=== PATIENT | female | born 1955 | race Caucasian/White ===

== ENCOUNTER 2016-04-06 10:58 | Inpatient (IN) | payer BC ==
[2016-04-06 11:45] LABS: Hemoglobin 12.6 gm/dL (12.5-16.0); Mean Cell Volume 85.9 fl (78-100); Mean Corpuscular Hemoglobin 30.1 pg (27-31); Mean Platelet Volume 8.1 fl (6.0-9.5); Neutrophil # 9.2 K/mm3 (1.3-6.0); Neutrophil % 77.8 % (42-75.0); Platelet Count 364 K/mm3 (150-450); Red Blood Count 4.19 M/mm3 (4.2-5.4); Red Cell Distribution Width 11.5 % (11.5-14.0); White Blood Count 11.8 K/mm3 (4.0-10.5)
[2016-04-06 11:58] LABS: Urine Appearance Slightly Cloudy; Urine Bilirubin Negative (NEGATIVE); Urine Blood 150 /ul (NEGATIVE); Urine Color Yellow; Urine Ketone 5 mg/dL (NEGATIVE); Urine Protein 15 mg/dL (NEGATIVE); Urine Urobilinogen Normal (NORMAL); Urine pH 5.5 pH (5.0-7.0)
[2016-04-06 11:59] LABS: Urine Bacteria 2+; Urine Nitrite Negative (NEGATIVE); Urine RBC 0-5 /hpf (0-5)
[2016-04-06 12:00] LABS: Urine WBC 25-50 /hpf (0-5)
[2016-04-06 12:04] LABS: Albumin * 3.8 gm/dl (3.4-5.0); Anion Gap 14.6 mmol/L (6.8-13.8); BUN/Creatinine Ratio 15.6 (9.0-21.6); Bilirubin, Total 0.5 mg/dL (0.0-1.1); Ca. Corrected For Albumin 9.7 mg/dL (8.4-10.2); Calcium * 9.9 mg/dL (7.9-10.9); Carbon Dioxide 27.7 mmol/L (24-32.6); Potassium 4.3 mmol/L (3.4-4.6); Total Protein 8.4 gm/dL (6.2-8.2)
[2016-04-06] MEDS ORDERED: NORMAL SALINE 1,000 ML IV ONE (12:57)
[2016-04-06] MEDS ORDERED: MORPHINE SULFATE 2 MG/ML DISP.SYRIN IV ONE (14:29)
[2016-04-06] MEDS ORDERED: MORPHINE SULFATE 2 MG/ML DISP.SYRIN ONE (14:36)
--- NOTE | 2016-04-06 15:39 | ERNOTE ---
Headache ER HPI - Narrative Date of Service: 04/06/16 - General Presenting Symptoms: headache, fever Time Seen by Provider: 04/06/16 12:24 Source: patient Exam Limitations: no limitations - Immun/Allergies/Home Medications Allergies/Adverse Reactions: Allergies azithromycin [From Zithromax Z-Abhilash] Allergy (Mild, Verified 04/06/16 11:25) Hives amoxicillin Allergy (Verified 04/06/16 11:26) Hives Home Medications: HOME MEDICATIONS Acetaminophen [Tylenol] 1,000 mg PO Q6H PRN 07/24/14 [Last Taken Unknown] Blood Sugar Diagnostic, Drum [Accu-Chek Compact] 1 each MC BID 07/24/14 [Last Taken Unknown] Calcium Carbonate [Caltrate 600] 600 mg PO BID 07/24/14 [Last Taken Unknown] Estrogens, Conjugated [Premarin Cream] 1 appl VG 2XW 07/24/14 [Last Taken Unknown] Ibuprofen [Motrin] 400 mg PO Q6H PRN 07/24/14 [Last Taken Unknown] metFORMIN HCL [Glucophage] 500 mg PO BIDWM 07/24/14 [Last Taken Unknown] - Pain Pain Score: 8 - History of Present Illness Narrative: Patient is a 60 year old female with history of well controlled DM who presents to the ED today with her complaining of headache, neck pain and low grade temperature since Thursday. Patient describes the pain to the back of her head as constant and stabbing. States she was seen 2 weeks ago and diagnosed with strep throat. Was started on Amoxil yet stopped after 5 days due to rash on extremities. She states she feels extremely lethargic and weak and felt "absolutely fatigued after work Thursday night". Date (Duration): 04/01/16 Timing of Headache: gradual, cannot pinpoint onset, still present, constant, worse Context Headache: Absent: CO exposure, tick bite, insect bite, sick contact, recent head injury < 24 hrs ago, recent head injury > 24 hrs, recent travel- outside [place] Quality: Present: stabbing Severity Maximum: Present: severe Severity-Currently: Present: moderate Headache frequency: Present: no recent headache Modifying Factors - (Improves): Reports: rest Modifying Factors - (Worsens): Reports: movement Associated Symptoms: Reports: fever/chills, nausea, vomiting, fatigue, weakness , neck pain/stiffness. Denies: sweating, nasal congestion, nasal drainage, facial pain, numbness/tingling, vision changes, confusion, light-headedness, dizziness, loss of consciousness, seizures, speech problems Exacerbated by:: Reports: movement Review of Systems - Review of Systems Constitutional: Present: See HPI, fever, chills, weakness, fatigue, weight loss. Absent: recent illness, diaphoresis EYE: Present: no symptoms reported. Absent: eye pain, eye discharge, blurred vision, double vision, vision changes ENT: Absent: ear pain, ear discharge, nose pain, nose congestion, nasal drainage , sore throat, throat swelling Respiratory: Present: cough. Absent: shortness of breath, orthopnea, wheezing Cardiology: Absent: chest pain, palpitations Gastrointestinal/Abdominal: Present: nausea, vomiting, eating less, drinking less. Absent: abdominal pain Genitourinary: Present: no symptoms reported Musculoskeletal: Present: neck pain. Absent: back pain, muscle pain, muscle stiffness, joint swelling Skin: Absent: rash, lesions Neurological: Present: headache. Absent: dizziness/light-headedness, weakness, numbness - Patient's Past Medical History Patient History - Medical: Diabetes Type 2, Other Patient History - Cancer: Melanoma, Surgical Treatment Patient History - Surgical Procedures: Other - Social History Living Situations: spouse Alcohol Use: occasionally Drug Use: none Physical Exam - Physical Exam General Appearance: Present: wd/wn, alert, no apparent distress Eye Exam: PERRL: bilateral Ears, Nose, Throat: Present: hearing grossly normal, normal pharynx, dry mucous membranes Neck: Present: normal inspection, supple, full range of motion, tender posterior midline. Absent: nontender, lymphadenopathy (R), lymphadenopathy (L) Respiratory: Present: no respiratory distress, normal breath sounds, no accessory muscle use, chest nontender, lungs clear. Absent: chest tenderness, respiratory distress Cardiovascular/Chest: Present: regular rate, rhythm, no murmur, normal peripheral pulses Peripheral Pulses: N=norm/S=strong/W=weak/B=bound/A=absent: Radial (R): Strong, Radial (L): Strong Gastrointestinal/Abdominal: Present: normal bowel sounds, nontender, nondistended, soft, no organomegaly Back Exam: Present: normal inspection, normal range of motion, no CVA tenderness , no vertebral tenderness Extremity Exam: Present: normal inspection, non-tender, no edema, normal range of motion Neurological Exam: Present: alert, oriented, normal mood/affect, no motor/ sensory deficits Skin Exam: Present: normal color, warm/dry. Absent: diaphoresis, cyanosis, skin rash Lymphatic Exam: Present: no adenopathy. Absent: axilla node (R), axilla node (L ) ED Progress - Results and Orders Patient's Lab Results:: I have reviewed the patient's lab results. - Vital Signs Patient's Vital Signs:: I have reviewed the patient's vital signs. Vital Signs: Vital Signs 04/06/16 04/06/16 04/06/16 11:22 12:55 14:00 Temperature 37.2 C Pulse Rate 90 88 90 Respiratory 14 14 14 Rate Blood Pressure 139/83 126/78 121/72 O2 Sat by Pulse 100 100 100 Oximetry 04/06/16 15:03 Temperature Pulse Rate 88 Respiratory 16 Rate Blood Pressure 122/74 O2 Sat by Pulse 99 Oximetry - X-Ray X-Ray #1 X-Ray: chest X-ray Comments: Findings: The lungs demonstrate no focal consolidation or acute abnormality. There is no pleural effusion or pneumothorax. Cardiac silhouette and pulmonary vasculature are normal. The osseous structures are within normal limits for age. IMPRESSION: No acute cardiopulmonary process detected - CT/Ultrasound CT/Ultrasound Narrative: Technique: CT Head W/O Contrast * Findings: There is no acute intracranial hemorrhage, midline shift or mass effect detected. No hydrocephalus. Cisterns are unremarkable. Calvarium is intact. Paranasal sinuses are clear. Mastoid air cells are well pneumatized. Impression: No acute intracranial process detected. - Progress/Reassessment Chief Complaint: Headache Progress Note-Subjective: 04/06/16 16:38 Dr Frances in room to perform LP. 04/06/16 18:30 Discussed tentative plan of care including desire to admit patient for IVF and antibiotics. Both and patient agreed to plan. Patient states she feels better after the fluid 04/06/16 20:00 Admission accepted by Brigitte. Patient up ambulating well without assistance. States she feels better, less pain. Departure Clinical Impression: Viral encephalitis - Departure Disposition: [facility] Condition: Serious
[2016-04-06] MEDS ORDERED: NORMAL SALINE 1,000 ML IV PRN (16:17)
[2016-04-06] MEDS ORDERED: ONDANSETRON HCL/PF 2 MG/ML VIAL IV ONE ×2 (16:26→16:59)
[2016-04-06] MEDS ORDERED: ONDANSETRON HCL/PF 2 MG/ML VIAL ONE ×2 (16:26→17:05)
[2016-04-06] MEDS ORDERED: KETOROLAC TROMETHAMINE 30 MG/ML VIAL IV ONE (16:59)
[2016-04-06] MEDS ORDERED: KETOROLAC TROMETHAMINE 30 MG/ML VIAL ONE (17:05)
[2016-04-06] MEDS: NORMAL SALINE 1,000 ML IV PRN (18:07)
[2016-04-06] MEDS ORDERED: VANCOMYCIN HCL 1 GM in DEXTROSE 5 % IN WATER 250 ML IV ONE ×2 (18:48)
[2016-04-06] MEDS ORDERED: LEVOFLOXACIN/D5W 750 MG/150 ML BAG IV SCH ×2 (19:00→20:15)
[2016-04-06 19:07] LABS: CSF Appearance Clear (CLEAR); CSF Color Colorless (COLORLESS)
[2016-04-06 19:08] LABS: CSF RBC 10 /uL (0-10); CSF WBC 3150 /uL (0-10)
[2016-04-06] MEDS ORDERED: ACYCLOVIR SODIUM 500 MG in NORMAL SALINE 100 ML IV SCH (20:00)
[2016-04-06 20:06] LABS: CSF Lymphocytes 89 % (0-100)
--- NOTE | 2016-04-06 21:54 | HP ---
Chief Complaint - Chief Complaint Date of Service: 04/06/16 Time of Service: 21:38 Chief Complaint: "Fatigue, Vomiting, Rashes, Headaches". Source of HPI- Pt; reliable, ER provider report, Pt's EMR. History of Present Illness: Mrs. Caballero is a 60-yr-old [place] pt of Dr. Swetha Lim. She has no other pertinent medical history except for DM Type II. Pt states that she saw her PCP on 03/27/16 for symptoms of: sore throat, non productive cough & loss of voice. She was found to have streptococcal Pharyngitis and was started on Amoxicillin 500 mg t.i.d x 10 days. She took the medication for 5 days and stopped taking on 04/01/16, when she noticed rashes on her thighs. She described the rashes as small, red & raised. She states that the rashes were itchy as well, but they have slowly disappeared. On the same day (Thursday), she noticed that she was very tired and thought it was just related to her illness. On Thursday , she felt extremely fatigued and she slept nearly the whole day. On , she developed a headache and still continued to feel fatigued. She says that by Thursday, she still felt she had no energy and begun having stiff neck, and still had headaches. On Thursday, the neck pain was severe. She finally chose to come to the [facility] ER on Thursday as she did not feel any better. She denies nausea, but says she has vomited a total of three times since Thursday. She also denies diarrhea. She has had no foreign travels and does not engage in outdoor recreational activities. During evaluation at the ER, she reported feeling very tired, and weak. The head CT and CXR obtained did not have any acute findings. However Lumbar Puncture CSF results showed findings consistent with Viral Meningitis. She will require inpatient stay in the event that the viral meningitis turns out to be a caused by a virus that can lead to a more serious diagnosis of viral encephalitis. - Patient's Past Medical History Patient History - Medical: Diabetes Type 2, Other Patient History - Cancer: Melanoma, Surgical Treatment Patient History - Surgical Procedures: Other - Family History Father Family History - Cardiac/Respiratory: CHF, Hypertension Mother Family History - Medical: Dementia Family History - Cardiac/Respiratory: Hypertension, Hyperlipidemia - Social History Living Situations: spouse Alcohol Use: occasionally Drug Use: none - Immunizations Immunizations Up to Date: Yes Hx Pneumococcal Vaccination: Yes History of Influenza Vaccine: Yes Review Of Systems (GEN) - Review of Systems Generalized/Overall Review: Present: Weakness, Chills, Fever, Malaise, Fatigue. Absent: Diaphoresis EENTM: Absent: Eye Pain, Blurred Vision, Double Vision, Ear Discharge, Nose Congestion, Throat Pain, Throat Swelling Respiratory: Absent: Cough, Shortness of Breath Cardiac: Absent: Chest Pain, Edema, Palpitations Abdominal: Present: Vomiting. Absent: Nausea, Abdominal Pain, Constipation, Diarrhea, Bright blood from rectum Genitourinary: Absent: Burning, Itching, Urgency, Frequency, Hematuria Musculoskeletal: Present: Neck Pain, Other - Body aches all over, Neurological: Present: Headache, Weakness. Absent: Anxiety, Depressed, Emotional Problems, Parasthesia, Tingling Skin: Present: Dryness, Rash Endocrine: Present: Intolerance to Cold. Absent: Increased Hunger, Increased Thirst Misc: All systems neg except as marked Allergies/Adverse Reactions: Allergies Allergy/AdvReac Type Severity Reaction Status Date / Time amoxicillin Allergy Intermediate Hives Verified 04/06/16 23:28 azithromycin Allergy Mild Hives Verified 04/06/16 23:28 [From Zithromax Z-Abhilash] Home Medications: HOME MEDICATIONS Acetaminophen [Tylenol] 1,000 mg PO Q6H PRN 07/24/14 [Last Taken Unknown] Blood Sugar Diagnostic, Drum [Accu-Chek Compact] 1 each MC 2XW 07/24/14 [Last Taken 03/26/16] Calcium Carbonate [Caltrate 600] 600 mg PO BID PRN 07/24/14 [Last Taken Unknown] Estrogens, Conjugated [Premarin Cream] 1 appl VG PRN 07/24/14 [Last Taken Unknown] Ibuprofen [Motrin] 200 mg PO Q6H PRN 07/24/14 [Last Taken Unknown] metFORMIN HCL [Glucophage] 500 mg PO QAM 07/24/14 [Last Taken 04/06/16 07:30] metFORMIN HCL [Glucophage] 250 mg PO QPM 04/06/16 [Last Taken 04/05/16 18:00] Exam - Exam Vital Signs: Vital Signs - Last Taken Temp 37.2 C 04/06/16 11:22 Pulse 88 04/06/16 20:00 Resp 14 04/06/16 20:00 BP 126/72 04/06/16 20:00 Pulse Ox 98 04/06/16 20:00 Constitutional: Present: Alert, Oriented x3, No distress, Other - very ill appearing ENT Exam: Present: normal ENT inspection, hearing grossly normal, dry mucous membranes. Absent: nasal congestion, nasal drainage Eye Exam: bilateral eye: normal inspection, PERRL Neck: Present: full range of motion, supple, normal inspection Back Exam: Present: normal inspection, no CVA tenderness Respiratory: Present: lungs clear, no accessory muscle use, No wheezing Cardiovascular/Chest: Present: normal peripheral pulses, regular rate, rhythm, no chest tenderness, no murmur Abdomen: Present: Normal bowel sounds, soft, nontender /Rectal: Present: Exam deferred Extremity: Present: non-tender, normal inspection, no pedal edema, normal capillary refill Skin Exam: Present: warm/dry, no cyanosis Lymphatic: Present: no adenopathy Neurologic: Present: no motor/sensory deficits, alert, depressed affect Appearance: Present: appropriate appearance, appropriate insight Eye contact: Present: cooperative, good eye contact, normal speech Thoughts: Present: normal thought pattern, no apparent hallucination Diagnostic Studies: Laboratory Results WBC 11.8 K/mm3 (4.0-10.5) H 04/06/16 11:40 RBC 4.19 M/mm3 (4.2-5.4) L 04/06/16 11:40 Hgb 12.6 gm/dL (12.5-16.0) 04/06/16 11:40 Hct 36.0 % (37.0-47.0) L 04/06/16 11:40 MCV 85.9 fl (78-100) 04/06/16 11:40 MCH 30.1 pg (27-31) 04/06/16 11:40 MCHC 35.0 g/dl (32-36) 04/06/16 11:40 RDW 11.5 % (11.5-14.0) 04/06/16 11:40 Plt Count 364 K/mm3 (150-450) 04/06/16 11:40 MPV 8.1 fl (6.0-9.5) 04/06/16 11:40 Immature Gran % (Auto) 0.60 % (0.001-0.429) H 04/06/16 11:40 Immature Gran # (Auto) 0.07 K/mm3 (0.000-0.0310) H 04/06/16 11:40 Neutrophils % 77.8 % (42-75.0) H 04/06/16 11:40 Lymphocytes % 14.6 % (20-51) L 04/06/16 11:40 Monocytes % 6.5 % (0.0-9) 04/06/16 11:40 Eosinophils % 0.2 % (0.0-3.0) 04/06/16 11:40 Basophils % 0.3 % (0.0-1.0) 04/06/16 11:40 Nucleated RBC % 0.0 k/mm3 (0-1) 04/06/16 11:40 Neutrophils # 9.2 K/mm3 (1.3-6.0) H 04/06/16 11:40 Lymphocytes # 1.7 k/mm3 (1.5-3.5) 04/06/16 11:40 Monocytes # 0.8 k/mm3 (0.0-1.0) 04/06/16 11:40 Eosinophils # 0.0 k/mm3 (0.0-0.7) 04/06/16 11:40 Absolute Basophils 0.0 k/mm3 (0.0-0.1) 04/06/16 11:40 Sodium 135 mmol/L (132-142) 04/06/16 11:40 Plasma Sodium 136 mmol/L (130-142) 04/06/16 11:40 Potassium 4.3 mmol/L (3.4-4.6) 04/06/16 11:40 Chloride 97 mmol/L (97-106) 04/06/16 11:40 Carbon Dioxide 27.7 mmol/L (24-32.6) 04/06/16 11:40 Anion Gap 14.6 mmol/L (6.8-13.8) H 04/06/16 11:40 BUN 14 mg/dL (3-23) 04/06/16 11:40 Creatinine 0.90 mg/dL (0.4-1.4) 04/06/16 11:40 Est GFR (Non-Af Amer) 68 mL/min (60-130) 04/06/16 11:40 BUN/Creatinine Ratio 15.6 (9.0-21.6) 04/06/16 11:40 Random Glucose 193 mg/dL (70-110) H 04/06/16 11:40 Calcium 9.9 mg/dL (7.9-10.9) 04/06/16 11:40 Calcium Adj for Albumin 9.7 mg/dL (8.4-10.2) 04/06/16 11:40 Total Bilirubin 0.5 mg/dL (0.0-1.1) 04/06/16 11:40 AST 10 U/L (0-48) 04/06/16 11:40 ALT 16 U/L (19-67) L 04/06/16 11:40 Alkaline Phosphatase 66 U/L (50-170) 04/06/16 11:40 C-Reactive Prot, Quant 4.7 mg/dL (0.0-0.9) H 04/06/16 11:40 Total Protein 8.4 gm/dL (6.2-8.2) H 04/06/16 11:40 Albumin 3.8 gm/dl (3.4-5.0) 04/06/16 11:40 Procalcitonin Less than 0.05 ng/mL (0.05-0.50) L 04/06/16 11:40 Urine Color Yellow 04/06/16 11:30 Urine Appearance Slightly cloudy 04/06/16 11:30 Urine pH 5.5 pH (5.0-7.0) 04/06/16 11:30 Ur Specific [place] 1.030 SP.GR. (1.005-1.010) 04/06/16 11:30 Urine Protein 15 mg/dL (NEGATIVE) H 04/06/16 11:30 Urine Glucose (UA) Negative mg/dL (NEGATIVE) 04/06/16 11:30 Urine Ketones 5 mg/dL (NEGATIVE) 04/06/16 11:30 Urine Blood 150 /ul (NEGATIVE) H 04/06/16 11:30 Urine Nitrate Negative (NEGATIVE) 04/06/16 11:30 Urine Bilirubin Negative mg/dl (NEGATIVE) 04/06/16 11:30 Prot Sulfosalicylic Acd 1+ mg/dL (0) 04/06/16 11:30 Urine Urobilinogen Normal EU/dl (NORMAL) 04/06/16 11:30 Ur Leukocyte Esterase 75 /ul (NEGATIVE) H 04/06/16 11:30 Urine RBC 0-5 /hpf (0-5) 04/06/16 11:30 Urine WBC 25-50 /hpf (0-5) H 04/06/16 11:30 Ur Epithelial Cells >25 /hpf (0-5) H 04/06/16 11:30 Urine Bacteria 2+ (NONE) H 04/06/16 11:30 Urine Culture Comments Culture to follow 04/06/16 11:30 CSF Appearance Clear (CLEAR) 04/06/16 16:58 CSF Color Colorless (COLORLESS) 04/06/16 16:58 CSF WBC 3150 /uL (0-10) H* 04/06/16 16:58 CSF RBC 10 /uL (0-10) 04/06/16 16:58 CSF Neutrophils 5 % (0-0) H 04/06/16 16:58 CSF Lymphocytes 89 % (0-100) 04/06/16 16:58 CSF Monocytes 6 % (0-10) 04/06/16 16:58 CSF Glucose 75 mg/dL (40-75) 04/06/16 16:58 CSF Total Protein 96.4 mg/dL (15.0-45.0) H 04/06/16 16:58 Influenza Type A Ag Negative (NEGATIVE) 04/06/16 13:40 Influenza Type B Ag Negative (NEGATIVE) 04/06/16 13:40 Group A Strep Rapid Negative (NEGATIVE) 04/06/16 11:40 Assessment/Plan - Assessment/Plan (1) Viral meningitis Assessment: Condition likely Meningitis VS Encephalitis. Pt noted to have typical features of viral Meningitis: headaches, neck stiffness, malaise, myalgias. She never checked her temperature to detect how high her temperature was, but reports having chills and shivering at night which are signs of fevers. Viral Meningitis also very likely given that it was preceded by viral respiratory symptoms involving coughing and sore throat. She tested positive to rapid strep test. I cannot find the culture results to determine if the strep test was viral or bacterial. A wide variety of viruses can infect [employer] and cause meningitis or encephalitis. Therefore will check HSV 1& 2, PCR, Varicella Zoster Virus. She has no neurological manifestations of encephalitis which could include AMS, motor or sensory deficits, hemiparesis or paresthesias. Viral Meningitis is generally self limiting and requires supportive cares. Treatment with empiric antibiotics may be necessary until diagnosis is confirmed. She did receive treatment with Vancomycin until L.P was done to confirm the viral meningitis. Will continue supportive cares with: IVF/Fluid intake, antipyretics, antiemetic and analgesics. Will continue treatment with IV Acyclovir until we get HSV, PCR & VZV results. Otherwise, antiviral agents are not effective treatments of viral meningitis. Acyclovir may be considered for HSV meningitis. Corticosteroids use is not recommended and limited to cerebral edema or intracranial HTN cases. Problem: Acute (2) UTI (urinary tract infection) Assessment: UA shows presence of UTI, will cover with Rocephin for now and switch to appropriate antibiotics once culture results. Problem: Acute (3) Diabetes mellitus Assessment: Last hemoglobin A1c 5.8. Will hold metformin for now incase there was need to any diagnostic tests involving contrast use. Accuchecks ACHS and low dose SSI Problem: Chronic
[2016-04-06] MEDS: ACYCLOVIR SODIUM 500 MG in NORMAL SALINE 100 ML IV SCH (21:59)
[2016-04-06] MEDS: INSULIN LISPRO 100 UNITS/ML VIAL SC SCH (23:36)
[2016-04-07] MEDS ORDERED: ESTROGENS CONJUGATED VG SCH (00:15)
[2016-04-07] MEDS ORDERED: ONDANSETRON HCL/PF 2 MG/ML VIAL IV PRN (01:00)
[2016-04-07] MEDS ORDERED: HYDROmorphone HCL 1 MG/ML DISP.SYRIN IV PRN (01:01)
[2016-04-07] MEDS: NORMAL SALINE 1,000 ML IV PRN ×2 (03:24→15:06)
[2016-04-07] MEDS: ACYCLOVIR SODIUM 500 MG in NORMAL SALINE 100 ML IV SCH ×3 (05:06→21:00)
[2016-04-07] MEDS: ACETAMINOPHEN 500 MG TABLET PO PRN ×2 (05:16→11:22)
[2016-04-07 05:33] LABS: Hematocrit 28.5 % (37.0-47.0); Hemoglobin 9.7 gm/dL (12.5-16.0); Mean Cell Volume 88.2 fl (78-100); Mean Platelet Volume 8.4 fl (6.0-9.5); Neutrophil # 3.6 K/mm3 (1.3-6.0); Neutrophil % 53.4 % (42-75.0); Platelet Count 297 K/mm3 (150-450); Red Blood Count 3.23 M/mm3 (4.2-5.4); Red Cell Distribution Width 11.6 % (11.5-14.0); White Blood Count 6.8 K/mm3 (4.0-10.5)
[2016-04-07 05:50] LABS: Anion Gap 12.8 mmol/L (6.8-13.8); BUN/Creatinine Ratio 14.9 (9.0-21.6); Calcium * 8.6 mg/dL (7.9-10.9); Estimated Creat Clear 77.6; Potassium 3.8 mmol/L (3.4-4.6)
[2016-04-07] MEDS: INSULIN LISPRO 100 UNITS/ML VIAL SC SCH ×4 (06:23→21:06)
[2016-04-07] MEDS: IBUPROFEN 200 MG TABLET PO PRN ×3 (07:43→21:00)
--- NOTE | 2016-04-07 07:50 | PN ---
Subjective - Date and Time Seen Date: 04/07/16 Time: 07:41 Subjective Narrative: Patient has no appetite . Complains of LOW. Objective - Review of Systems Generalized/Overall Review: Denies: Chills, Fever EENTM: Denies: Blurred Vision Respiratory: Denies: Cough, Shortness of Breath Cardiac: Denies: Chest Pain, Palpitations Abdominal: Reports: Nausea. Denies: Vomiting Genitourinary Symptoms: Denies: Urgency, Frequency Musculoskeletal Complaints: Reports: Neck Pain Neurological: Reports: Headache - Vitals Vitals: Last Vital Signs Temp 36.7 C 04/07/16 06:41 Pulse 79 04/07/16 06:41 Resp 11 L 04/07/16 06:41 BP 102/61 04/07/16 06:41 Pulse Ox 98 04/07/16 06:41 - Abnormal Lab Findings Abnormal Lab Findings: Abnormal Lab Results 04/07/16 Range/Units 04:45 RBC 3.23 L (4.2-5.4) M/mm3 Hgb 9.7 L (12.5-16.0) gm/dL Hct 28.5 L (37.0-47.0) % Monocytes % 9.1 H (0.0-9) % - Exam Constitutional: Present: Alert, Oriented x3, Cooperative ENT Exam: Present: hearing grossly normal Neck: Present: stiff neck Breasts: Present: Exam deferred Respiratory: Present: normal breath sounds, No rales, No wheezing Cardiovascular/Chest: Present: regular rate, rhythm, no JVD, no murmur Abdomen: Present: soft, nontender, nondistended Extremity: Present: no pedal edema, no calf tenderness Neurologic: Present: rod piler II-XII nml as tested, no motor/sensory deficits, oriented x 3 Assessment/Plan - Problems/Diagnosis (1) Headache Problem: Acute Qualifiers: Headache type: new daily persistent Qualified Code(s): G44.52 - New daily persistent headache (NDPH) Narrative: Meningitis- bacterial vs viral. Acylovir started. Vanco given at the ER. I told [employer] to give 2 grams of IV rocephin now. will get neurology consult. (2) Pyuria Problem: Acute Narrative: with bacteuria- will receive rocephin. await culture.
[2016-04-07] MEDS: CALCIUM CARBONATE/VITAMIN D3 1 TAB TABLET PO SCH (09:34)
[2016-04-08] MEDS: NORMAL SALINE 1,000 ML IV PRN (00:39)
[2016-04-08] MEDS: ACYCLOVIR SODIUM 500 MG in NORMAL SALINE 100 ML IV SCH ×4 (04:50→22:04)
[2016-04-08] MEDS: IBUPROFEN 200 MG TABLET PO PRN ×3 (04:56→20:44)
[2016-04-08] MEDS: INSULIN LISPRO 100 UNITS/ML VIAL SC SCH ×4 (07:22→20:40)
--- NOTE | 2016-04-08 07:56 | PN ---
Subjective - Date and Time Seen Date: 04/08/16 Time: 07:53 Subjective Narrative: Patient feeling better. LOW is better and neck not as stiff. Appetite is back. Objective - Review of Systems Generalized/Overall Review: Denies: Chills, Fever EENTM: Denies: Blurred Vision Respiratory: Reports: Cough. Denies: Shortness of Breath Cardiac: Denies: Chest Pain Abdominal: Denies: Nausea, Vomiting Genitourinary Symptoms: Denies: Urgency, Frequency Musculoskeletal Complaints: Reports: Joint Pain Neurological: Reports: Headache - Vitals Vitals: Last Vital Signs Temp 36.8 C 04/08/16 06:21 Pulse 75 04/08/16 06:21 Resp 16 04/08/16 06:21 BP 136/73 04/08/16 06:21 Pulse Ox 97 04/08/16 06:21 - Exam Constitutional: Present: Alert, Oriented x3, Cooperative ENT Exam: Present: hearing grossly normal Neck: Present: stiff neck - but improved Respiratory: Present: normal breath sounds, No rales, No wheezing Cardiovascular/Chest: Present: regular rate, rhythm, no JVD, no murmur Abdomen: Present: Normal bowel sounds, soft, nontender, nondistended Extremity: Present: no pedal edema, no calf tenderness Neurologic: Present: pharmaceutical botanist II-XII nml as tested, oriented x 3 Assessment/Plan - Problems/Diagnosis (1) Headache Problem: Acute Qualifiers: Headache type: new daily persistent Qualified Code(s): G44.52 - New daily persistent headache (NDPH) Narrative: improved significantly. (2) Pyuria Problem: Acute (3) Viral meningitis Problem: Acute Narrative: CSF C & S -NG. PCR for HSV pending. will try to get neurology input. (4) Diabetes mellitus type 2 in nonobese Problem: Acute Narrative: will restart metformin.
[2016-04-08] MEDS: ACETAMINOPHEN 500 MG TABLET PO PRN ×2 (09:31→17:17)
[2016-04-08] MEDS: CALCIUM CARBONATE/VITAMIN D3 1 TAB TABLET PO SCH (09:32)
[2016-04-08] MEDS: metFORMIN HCL 500 MG TABLET PO SCH ×2 (09:32→17:11)
[2016-04-08] MEDS ORDERED: VANCOMYCIN HCL 1 GM in DEXTROSE 5 % IN WATER 250 ML IV SCH ×2 (20:00)
[2016-04-08] MEDS ORDERED: ACYCLOVIR 800 MG TABLET PO ONE ×2 (20:47→22:00)
[2016-04-09 05:39] LABS: Hematocrit 30.5 % (37.0-47.0); Hemoglobin 10.6 gm/dL (12.5-16.0); Mean Cell Volume 86.2 fl (78-100); Mean Corpuscular Hemoglobin 29.9 pg (27-31); Mean Corpuscular Hgb Conc 34.8 g/dl (32-36); Mean Platelet Volume 8.5 fl (6.0-9.5); Neutrophil # 3.1 K/mm3 (1.3-6.0); Neutrophil % 49.6 % (42-75.0); Platelet Count 378 K/mm3 (150-450); Red Blood Count 3.54 M/mm3 (4.2-5.4); Red Cell Distribution Width 11.4 % (11.5-14.0); White Blood Count 6.3 K/mm3 (4.0-10.5)
[2016-04-09 06:00] LABS: Iron 54 mcg/dL (35-120); Transferrin Sat. (% Sat.) 21 % (15-55)
[2016-04-09 06:19] LABS: Anion Gap 12.1 mmol/L (6.8-13.8); BUN/Creatinine Ratio 16.3 (9.0-21.6); Calcium * 9.2 mg/dL (7.9-10.9); Carbon Dioxide 27.5 mmol/L (24-32.6); Estimated Creat Clear 71.8; Potassium 3.6 mmol/L (3.4-4.6); TSH * 3.627 uIU/mL (0.358-3.74)
[2016-04-09] MEDS: IBUPROFEN 200 MG TABLET PO PRN ×2 (06:57→13:11)
[2016-04-09] MEDS: INSULIN LISPRO 100 UNITS/ML VIAL SC SCH ×2 (07:59→12:29)
--- NOTE | 2016-04-09 08:27 | DS ---
(1) Headache Diagnosis(s): significantly improved Problem: Acute Qualifiers: Headache type: new daily persistent Qualified Code(s): G44.52 - New daily persistent headache (NDPH) (2) Pyuria Diagnosis(s): bacteuria- UCS - NG. Problem: Acute (3) Viral meningitis Diagnosis(s): CSF culture- NG. PCR pending. Discussed with Dr. Meraz- she can go home on Acyclovir x 1 week . Problem: Acute (4) Diabetes mellitus type 2 in nonobese Problem: Acute Description of Stay: Carmita aCballero is a 60-yr-old [facility] pt of Dr. Swetha Lim. Her medical history is siginifcant for DM Type II. Pt stated that she saw her PCP on 03/27/16 for symptoms of: sore throat, non productive cough & loss of voice. She was found to have streptococcal Pharyngitis and was started on Amoxicillin 500 mg t.i.d x 10 days. She took the medication for 5 days and stopped taking on Thursday, 04/01, when she noticed rashes on her thighs. She described the rashes as small, red & raised. She states that the rashes were itchy as well, but they have slowly disappeared. On the same day (Thursday), she noticed that she was very tired and thought it was just related to her illness. On Thursday, she felt extremely fatigued and she slept nearly the whole day. On , she developed a headache and still continued to feel fatigued. She says that by Thursday, she still felt she had no energy and begun having stiff neck, and still had headaches. On Thursday, the neck pain was severe. She finally chose to come to the [facility] ER on Thursday as she did not feel any better. She denied nausea, but says she has vomited a total of three times since Thursday. She also denies diarrhea. She has had no foreign travels and does not engage in outdoor recreational activities. During evaluation at the ER, she reported feeling very tired, and weak. The head CT and CXR obtained did not have any acute findings. However Lumbar Puncture CSF results showed findings consistent with Viral Meningitis. She was admitted for IV Acyclovir. she got a IV dose of Vanco and Rocephin. Her CSF culture showed NG. Dr. Meraz , neurology was consulted , and he says that she can go home on Acyclovir and follow up with him in 2 weeks time. She will stay off work until she follows up with her her PCP in 1 week. Procedures Performed: none List Procedures: Lumbar tap Discharge Disposition: Home self care Disposition: Home self-care Condition: Serious Discharge Diet: Consistent carbs Referrals: Swetha Lim MD [Primary Care Provider] - Problem Oriented Discharge Instructions to Patient/Family: Viral Encephalitis Additional Patient Instructions (free text): Follow up with PCP- Dr. Lim in 1 week on 04-16-16 @ 10:30am. She will off work until she sees her PCP. Please make an appointment with Dr. Meraz in 2 weeks it will be on 05-05-16 @ [facility] @ 11:20am. in [address]. Prescriptions (Any new or edited meds): Acyclovir [Zovirax] 800 mg PO TID #21 tablet Complete Home Medications List: Complete Home Medication List: Acetaminophen [Tylenol] 1,000 mg PO Q6H PRN 07/24/14 Blood Sugar Diagnostic, Drum [Accu-Chek Compact] 1 each MC 2XW 07/24/14 Calcium Carbonate [Caltrate 600] 600 mg PO BID PRN 07/24/14 Estrogens, Conjugated [Premarin Cream] 1 appl VG PRN 07/24/14 Ibuprofen [Motrin] 200 mg PO Q6H PRN 07/24/14 metFORMIN HCL [Glucophage] 500 mg PO QAM 07/24/14 metFORMIN HCL [Glucophage] 250 mg PO QPM 04/06/16 Acyclovir [Zovirax] 800 mg PO TID #21 tablet 04/09/16
[2016-04-09] MEDS: CALCIUM CARBONATE/VITAMIN D3 1 TAB TABLET PO SCH (09:09)
[2016-04-09] MEDS: metFORMIN HCL 500 MG TABLET PO SCH (09:09)
[2016-04-09] MEDS: ACETAMINOPHEN 500 MG TABLET PO PRN (09:09)
[2016-04-09 10:02] VITALS: BP 133/75
[2016-04-10 07:59] LABS: HSV 1 DNA NOT DETECTED
[2016-04-10 08:31] LABS: HSV 2 DNA NOT DETECTED
== END 2016-04-09 13:50 | disposition home or self-care (01) | DRG 75 ==
LOC: ER 10:58 → MS 19:55
PROVIDERS: ADMIT Nurse Practitioner; ATTEND Internal Medicine
DX: A87.9 Viral meningitis, unspecified (principal); N39.0 Urinary tract infection, site not specified; E11.9 Type 2 diabetes mellitus without complications; Z85.820 Personal history of malignant melanoma of skin